=== PATIENT | female | born 1985 | race Caucasian/White ===

== ENCOUNTER 2022-08-04 16:52 | Emergency (ER) | payer SELFPAY ==
[2022-08-04] MEDS ORDERED: SODIUM CHLORIDE 1,000 ML IV STA (17:06)
[2022-08-04 17:09] VITALS: TEMP 98.1; BMI 29.2
[2022-08-04 19:02] LABS: BASO % 0.4 % (0-2.0); EOS % 0.3 % (0-4.5); HEMATOCRIT 33.9 % (32.4-45.2); HEMOGLOBIN 11.7 GM/dL (10.7-15.3); MCH 30.5 pg (25.7-33.7); MCHC 34.6 g/dl (32.0-36.0); MEAN PLT VOLUME 8.4 fl (7.5-11.1); NEUT % 85.3 % (42.8-82.8); PLATELET COUNT 265 10^3/uL (134-434); RBC 3.85 M/mm3 (3.60-5.2); RDW 13.9 % (11.6-15.6); WHITE BLOOD COUNT 10.6 K/mm3 (4.0-10.0)
[2022-08-04] MEDS ORDERED: MAGNESIUM 1GM/D5W - 1 GM/100 ML IVPB IVPB ONE (19:23)
[2022-08-04 19:24] LABS: ALBUMIN 3.5 g/dl (3.4-5.0); CALCIUM 8.6 mg/dL (8.5-10.1); MAGNESIUM 2.1 mg/dL (1.8-2.4)
[2022-08-04 19:27] LABS: CREATININE 0.5 mg/dL (0.55-1.3)
[2022-08-04 19:29] LABS: BILIRUBIN,TOTAL 0.3 mg/dL (0.2-1); TOT PROT 6.7 g/dl (6.4-8.2)
[2022-08-04 19:32] VITALS: BP 99/69; PULSE 74; RESP 16
[2022-08-04] MEDS ORDERED: SODIUM CHLORIDE 0.9% 500 ML INFUS.BAG IV ONE (20:42)
[2022-08-04 20:58] LABS: EPI CELLS 9 /uL (0-25.1); HCG,QUALITATIVE URINE Negative; HYALINE CASTS 0 /uL (0-3.1); URINE APPEARANCE CLEAR; URINE BACTERIA 200 /uL (0-1359); URINE BILIRUBIN NEGATIVE (NEGATIVE); URINE COLOR YELLOW; URINE GLUCOSE (UA) NEGATIVE (NEGATIVE); URINE KETONE 1+ (NEGATIVE); URINE LEUK ESTERASE NEGATIVE (NEGATIVE); URINE NITRITE NEGATIVE (NEGATIVE); URINE PROTEIN NEGATIVE (NEGATIVE); URINE RBC 2 /uL (0-23.9); URINE UROBILINOGEN 0.2 mg/dL (0.2-1.0); URINE WBC 8 /uL (0-25.8)
== END 2022-08-04 23:17 | disposition home or self-care (01) ==
LOC: JER 16:52
PROC: 3E033GC Introduction of Other Therapeutic Substance into Peripheral Vein, Percutaneous Approach (ICD-10-PCS; principal; 2022-08-04)
DX: R55 Syncope and collapse (principal)
CPT/HCPCS: 0241U-QW; 36415; 80053; 81003; 83690; 83735; 84484; 84703; 85025; 86850; 86900; 86901; 93005; 93010; 99284-25

== ENCOUNTER 2022-08-06 14:09 | Observation (INO) | payer SELFPAY ==
[2022-08-06 14:23] VITALS: BMI 27.4
[2022-08-06 16:14] LABS: BASO % 0.8 % (0-2.0); EOS % 1.1 % (0-4.5); HEMATOCRIT 33.5 % (32.4-45.2); HEMOGLOBIN 11.4 GM/dL (10.7-15.3); MEAN PLT VOLUME 8.3 fl (7.5-11.1); MONO % 6.1 % (3.8-10.2); PLATELET COUNT 270 10^3/uL (134-434); WHITE BLOOD COUNT 5.6 K/mm3 (4.0-10.0)
[2022-08-06 16:25] LABS: INR 1.03 (0.83-1.09); PROTHROMBIN TIME (PATIENT) 11.9 SEC (9.7-13.0)
[2022-08-06 16:27] LABS: ACTIVATED PTT 36.5 SECONDS (25.2-36.5)
[2022-08-06 16:32] LABS: BLOOD UREA NITROGEN 9.7 mg/dL (7-18); CALCIUM 8.7 mg/dL (8.5-10.1)
[2022-08-06 16:33] LABS: ALBUMIN 3.4 g/dl (3.4-5.0); MAGNESIUM 2.1 mg/dL (1.8-2.4)
[2022-08-06 16:36] LABS: CREATININE 0.7 mg/dL (0.55-1.3)
[2022-08-06 16:37] LABS: BILIRUBIN,TOTAL 0.2 mg/dL (0.2-1)
[2022-08-06] MEDS ORDERED: ACETAMINOPHEN 1000 MG/100 ML BAG IVPB ONE (19:49)
[2022-08-06] MEDS ORDERED: ACETAMINOPHEN INJECTION 100 ML IVPB ONE (20:10)
[2022-08-07 06:44] LABS: ALBUMIN 3.2 g/dl (3.4-5.0); BLOOD UREA NITROGEN 12.9 mg/dL (7-18); CALCIUM 8.7 mg/dL (8.5-10.1)
[2022-08-07 06:45] LABS: CHOLESTEROL 182 mg/dL (50-200)
[2022-08-07 06:46] LABS: LDL CHOLESTEROL (ONLY SJRH) 120 mg/dL (5-100)
[2022-08-07 06:47] LABS: CREATININE 0.5 mg/dL (0.55-1.3)
[2022-08-07 06:48] LABS: HDL CHOLESTEROL 46 mg/dL (40-60)
[2022-08-07 06:49] LABS: BILIRUBIN,TOTAL 0.3 mg/dL (0.2-1); HEMATOCRIT 32.9 % (32.4-45.2); HEMOGLOBIN 11.4 GM/dL (10.7-15.3); MCH 30.4 pg (25.7-33.7); MCHC 34.7 g/dl (32.0-36.0); MEAN CELL VOLUME 87.8 fl (80-96); MEAN PLT VOLUME 8.4 fl (7.5-11.1); PLATELET COUNT 250 10^3/uL (134-434); RBC 3.75 M/mm3 (3.60-5.2); TOT PROT 6.6 g/dl (6.4-8.2); WHITE BLOOD COUNT 5.9 K/mm3 (4.0-10.0)
[2022-08-07] MEDS ORDERED: ENOXAPARIN NA (PORCINE) 40 MG/0.4 ML DISP.SYRIN SQ ONE (09:17)
[2022-08-07 09:53] LABS: URINE APPEARANCE CLEAR; URINE BILIRUBIN NEGATIVE (NEGATIVE); URINE COLOR YELLOW; URINE GLUCOSE (UA) NEGATIVE (NEGATIVE); URINE KETONE NEGATIVE (NEGATIVE)
[2022-08-07 09:54] LABS: EPI CELLS 3 /uL (0-25.1); HYALINE CASTS 0.25 /uL (0-3.1); URINE BACTERIA 36 /uL (0-1359); URINE LEUK ESTERASE NEGATIVE (NEGATIVE); URINE NITRITE NEGATIVE (NEGATIVE); URINE PROTEIN NEGATIVE (NEGATIVE); URINE RBC 12 /uL (0-23.9); URINE UROBILINOGEN 0.2 mg/dL (0.2-1.0); URINE WBC 7 /uL (0-25.8)
[2022-08-07 10:00] LABS: PHENCYCLIDINE,URINE NEGATIVE (NEGATIVE); URINE BENZODIAZEPINES NEGATIVE (NEGATIVE)
[2022-08-07] MEDS ORDERED: ENOXAPARIN NA (PORCINE) 40 MG/0.4 ML DISP.SYRIN SQ SCH (10:00)
[2022-08-07 10:01] LABS: COCAINE, UR NEGATIVE (NEGATIVE); OPIATES, URI NEGATIVE (NEGATIVE); URINE AMPHETAMINES NEGATIVE (NEGATIVE); URINE BARBITURATES NEGATIVE (NEGATIVE)
[2022-08-07 10:19] LABS: METHADONE, UR NEGATIVE (NEGATIVE)
[2022-08-07 14:46] VITALS: RESP 18
[2022-08-07 14:49] VITALS: BP 108/68; PULSE 76; TEMP 99.5
== END 2022-08-07 14:55 | disposition home or self-care (01) ==
LOC: JER 14:09 → JERBED 08-07 01:27
PROVIDERS: ADMIT Internal Medicine; ATTEND Internal Medicine
PROC: 3E033NZ Introduction of Analgesics, Hypnotics, Sedatives into Peripheral Vein, Percutaneous Approach (ICD-10-PCS; principal; 2022-08-07)
PROC: 3E023GC Introduction of Other Therapeutic Substance into Muscle, Percutaneous Approach (ICD-10-PCS; 2022-08-07)
DX: R07.9 Chest pain, unspecified (principal); R42 Dizziness and giddiness; R06.02 Shortness of breath; E03.9 Hypothyroidism, unspecified; R00.2 Palpitations
CPT/HCPCS: 0241U-QW; 36415; 71046-TC-FY; 71275-TC; 80053; 80061; 80307; 81003; 83036; 83735; 84439; 84443; 84481; 84484; 84703; 85025; 85027; 85610; 85730; 87086; 87186; 93005; 93010; 93306-TC; 93880-TC; 93971-TC; 99285-25; G0378; Q9967